=== PATIENT | male | born 1960 | race Caucasian/White ===

== ENCOUNTER → 2020-02-03 10:00 | Outpatient (BNVA) | payer OTHER, SELFPAY | PROVIDERS: Visit Provider Family Medicine | DX: I10 Essential (primary) hypertension (principal); R53.83 Other fatigue; Z12.5 Encounter for screening for malignant neoplasm of prostate; E34.9 Endocrine disorder, unspecified; M19.90 Unspecified osteoarthritis, unspecified site | CPT/HCPCS: 80053; 80061; 82607; 82652; 84153; 84402; 84403; 84443; 85025 ==

== ENCOUNTER → 2020-10-20 11:57 | Outpatient (BNVA) | payer OTHER, SELFPAY | PROVIDERS: Visit Provider Family Medicine | DX: I10 Essential (primary) hypertension (principal); G47.33 Obstructive sleep apnea (adult) (pediatric); G47.10 Hypersomnia, unspecified; E11.9 Type 2 diabetes mellitus without complications; N40.1 Benign prostatic hyperplasia with lower urinary tract symptoms; R39.12 Poor urinary stream; I16.0 Hypertensive urgency; Z68.41 Body mass index [BMI] 40.0-44.9, adult | CPT/HCPCS: 80048; 83036 ==